=== PATIENT | female | born 1985 | race Caucasian/White ===

== ENCOUNTER 2016-09-05 10:34 | Day surgery (SDC) | payer OTHER ==
[~2016-09-05] VITALS: Ht 167.6 cm; Wt 84.0 kg
[~2016-09-05 10:34] MED LIST: DOCUSATE SODIU100 MG PO; ENDOCET 5-3251 EACH PO; HYDROCODON-ACE1 EAC5 PO; HYDROCODON-ACE1 EAC7 PO; HYDROCODON-ACE1 EAC9 PO; IBUPROFEN800 MG PO; KEFLEX500 MG PO; LYRICA100 MG PO; NEURONTIN300 MG PO; ONDANSETRON HCL8 MG PO; PERCOCET 5/31 TABLET PO; PREMARIN VAGI42.5 GM VG; PRENATAL PLUS1 EAC5 PO; PRENATAL TABLE1 EAC3 PO; PROMETHAZINE HC25 MG PR; PROMETHAZINE12.5 M1 PO; ZITHROMAX250 MG PO; ZOFRAN4 MG PO; ZOLPIDEM TARTRA10 MG
[2016-09-05 11:25] VITALS: BP 116/68
[2016-09-05 16:28] VITALS: BP 102/63
[2016-09-05 17:25] VITALS: BP 111/70
== END 2016-09-05 17:59 | disposition home or self-care (01) ==
LOC: SDC 10:34
PROC: 0UV Female Reproductive System, Restriction (ICD-10-PCS; principal; 2016-09-05)
DX: N88.3 Incompetence of cervix uteri (principal); J45.909 Unspecified asthma, uncomplicated
CPT/HCPCS: J1885; J2405

== ENCOUNTER 2016-10-27 20:25 | Emergency (ER) | payer OTHER ==
[~2016-10-27] VITALS: Ht 167.6 cm; Wt 88.4 kg
[2016-10-27] MEDS ORDERED: AFRIN,GENASAL D15 ML BOTH NARES (21:17)
[2016-10-27 21:46] VITALS: BP 135/80
== END 2016-10-27 21:49 | disposition home or self-care (01) ==
LOC: EME 20:25
DX: O99.89 Other specified diseases and conditions complicating pregnancy, childbirth and the puerperium (principal); H65.02 Acute serous otitis media, left ear; Z3A.22 22 weeks gestation of pregnancy
CPT/HCPCS: 99281; 99284